=== PATIENT | male | born 1935 | race Caucasian/White ===

== ENCOUNTER 2018-01-22 11:56 | Inpatient (IN) ==
--- NOTE | 2018-01-22 12:10 | Emergency Department Note ---
Disposition Clinical Impression: Acute hyperglycemia, EDUARDO (acute kidney injury), Acute delirium Right upper lobe pneumonia Qualifiers: Pneumonia type: due to unspecified organism Qualified Code(s): J18.1 - Lobar pneumonia, unspecified organism UTI (urinary tract infection) Qualifiers: Urinary tract infection type: acute pyelonephritis Qualified Code(s): N10 - Acute pyelonephritis Disposition: Admitted As Inpatient Condition: Fair Referrals: Guillermo Carey MD [Primary Care Provider] - Forms: ED Satisfaction Letter Time of Disposition: 16:03 Altered Mental Status HPI - General Chief Complaint: ED Altered Mental Status Stated Complaint: ams Time Seen by Provider: 01/22/18 11:58 Nursing Notes Reviewed: Yes Vital Signs Reviewed: Yes - History of Present Illness HPI Narrative: 82-year-old male brought in by EMS for complaint of altered mental status by patient's family. Patient is brought in from home. Patient denies any current complaints at this time concerning pain, shortness breath fevers, chills headaches or weakness. Family is not at bedside currently. EMS states that the patient is combative and not acting at his baseline. He has a history of Alzheimer's dementia but is usually friendly. They noticed the patient's blood sugars were high at home and patient has had problems with urinary tract infection in the past. EMS states that patient had a bowel movement on himself en-route. - Related Data Home Medications Medication Instructions Recorded Confirmed Insulin. 09/26/17 Lipitor 09/26/17 Previous Rx's Medication Instructions Recorded Sulfamethoxazole/Trimeth DS 1 each PO BID #14 tablet 09/26/17 [Bactrim DS] cephALEXin [Keflex] 500 mg PO TID #30 capsule 10/17/17 Allergies Allergy/AdvReac Type Severity Reaction Status Date / Time No Known Allergies Allergy Verified 09/26/17 16:53 All systems ED: reviewed and negative except as stated. Review of Systems: As Per HPI Limitations: ROS unobtainable due to patients medical condition Past Medical History - Past Medical History Attestation: Yes The following information was validated with the patient. Source: unable to obtain Medical history: Reports: diabetes, other Psychiatric history: Reports: no psych history - Social History Smoking Status: Current every day smoker Smokeless Tobacco Status: No Alcohol use: Reports: none Drug use: Reports: none Physical Exam Vital Signs Temperature 97.7 F 01/22/18 12:17 Pulse Rate 90 01/22/18 12:17 Respiratory Rate 20 01/22/18 12:17 Blood Pressure 121/89 01/22/18 12:17 O2 Sat by Pulse Oximetry 97 01/22/18 12:17 Temperature 97.7 F 01/22/18 12:17 Pulse Rate 90 01/22/18 12:17 Respiratory Rate 20 01/22/18 12:17 Blood Pressure 121/89 01/22/18 12:17 O2 Sat by Pulse Oximetry 97 01/22/18 12:17 Oxygen Delivery Oxygen Delivery Room Air CONSTITUTIONAL: Well-appearing; well-nourished; A&O X 1 to himself, in no apparent distress. Vital signs heart rate of 90 bpm. Normotensive at 121/89. HEAD: Normocephalic; atraumatic EYES: PERRL, no scleral icterus NOSE: The nose is normal in appearance without rhinorrhea NECK: No JVD or distended neck veins RESP: Normal chest excursion with respiration; breath sounds clear and equal bilaterally; no wheezes, rhonchi, or rales CARD: Regular rhythm, without murmurs, rub or gallop ABD: Non-distended; non-tender, soft, without rigidity, rebound or guarding,no pulsatile mass CHEST: No pain with palpation SKIN: Normal for age and race; warm and dry without diaphoresis ; no apparent lesions EXTREMITIES: Pulses are 2 plus and equal times 4 extremities, 2 plus peripheral pitting edema. No calf muscle pain NEUROLOGICAL: Patient is alert and oriented times three. Cranial nerves III- XII are intact. Sensory and motor functions are intact. Strength is 5/5 for flexion and extension in all 4 extremities. Course - Reevaluation(s) Reevaluation #1: Reevaluated. Daughter is at bedside. She states the patient is always pleasantly confused. She reports he has a history of urinary tract infections resistant to most antibiotics. Patient does have a right-sided upper lobe pneumonia. Initially we are going to place him on Levaquin however his recent UTI was resistant to this. We will place him on vancomycin Zosyn at this time. Anticipation of admission. Time: 13:21 Reevaluation #2: Patient's blood glucose greater than 500, beta hydroxybutyric acid elevated at 2.0 Time: 14:04 Reevaluation #3: Pt's daughter understands and agrees for admission Time: 14:27 Additional Reevaluation(s): 1504: Patient disconnected his IV, urine condom catheter, and his limb leads 1523 hrs: Labs states they cannot find the patient's VBG which is ordered an hour ago. They state to come and redraw. Ordered ABG. Vital Signs Temperature 97.7 F 01/22/18 12:17 Pulse Rate 90 01/22/18 12:17 Respiratory Rate 20 01/22/18 12:17 Blood Pressure 121/89 01/22/18 12:17 O2 Sat by Pulse Oximetry 97 01/22/18 12:17 Temperature 97.7 F 01/22/18 12:17 Pulse Rate 93 01/22/18 15:48 Respiratory Rate 18 01/22/18 15:48 Blood Pressure 133/80 01/22/18 15:48 O2 Sat by Pulse Oximetry 97 01/22/18 15:48 Oxygen Delivery Oxygen Delivery Room Air Altered Mental Status - MDM Narrative Medical decision making narrative: Patient's alteration of mental status appears to be attributed to pneumonia found on chest x-ray and a right upper lobe. Patient's urine also appears to be infected with a large a lot of blood, nitrites and leukocyte esterase as well as bacteria. Patient started on vancomycin and Zosyn due to prior resistance to levofloxacin from prior culture sensitivity. Patient's lab abnormalities include an elevation of creatinine, elevated glucose above 500, elevated beta hydroxybutyric acid, and mild elevation of WBC. Osmolality is high blood patient's has a anion gap calculated at 14. Patient's pH 7.35. Patient currently not in DKA but still has very high glucose and started on IV rehydration and insulin drip. Glucose on reevaluation were just above 300. Current plan is for admission for treatment of pneumonia right upper lobe from chest x-ray results showing consolidation and right upper lobe and a UTI. Dr. Saavedra the hospitalist as accepted patient for admission. Patient is currently in stable condition. Patient is heavily concentrating on his rag. Since doing so, patient has been very calm and has stopped removing his IVs and limb leads. - Lab Data Lab results reviewed: Yes I reviewed the patient's lab results. Lab results narrative: Short CBC 01/22/18 Range/Units 13:22 WBC 13.9 H (4.3-11.1) K/mcL Hgb 13.6 (12.9-16.9) g/dL Hct 40.4 (37.5-50.1) % Plt Count 452 H (140-400) K/mcL Neutrophils # 12.6 H (1.6-8.9) K/mcL BMP 01/22/18 Range/Units 13:22 Sodium 144 (136-145) mEq/L Potassium 4.5 (3.5-5.1) mEq/L Chloride 107 (98-107) mEq/L Carbon Dioxide 23 (23-29) mEq/L BUN 30 H (8-23) mg/dL Creatinine 1.74 H (0.70-1.30) mg/dL Glucose 555 H* (70-105) mg/dL Calcium 10.1 (8.6-10.3) mg/dL Cardiac Enzymes 01/22/18 Range/Units 13:22 Troponin I < 0.03 (< 0.04) ng/mL Liver Function 01/22/18 Range/Units 13:22 Total Bilirubin 0.5 (0.3-1.0) mg/dL AST 44 H (13-39) Units/L ALT 30 (7-52) Units/L Alkaline Phosphatase 73 (34-104) Units/L Albumin 4.1 (3.5-5.7) g/dL Urine 01/22/18 Range/Units 14:36 Urine Color Yellow (Yellow) Urine Clarity Cloudy A (Clear) Urine pH 6.0 (5.0-8.0) pH Units Ur Specific Broxton 1.030 H (1.010-1.025) Urine Protein 30 H (Neg-Trace) mg/dL Urine Glucose (UA) >=1000 H (Normal) mg/dL Result diagrams: 01/22/18 13:22 01/22/18 13:22 Lab Results 01/22/18 01/22/18 01/22/18 Range/Units 12:05 12:06 13:22 WBC 13.9 H (4.3-11.1) K/mcL RBC 4.48 (4.19-5.50) M/mcL Hgb 13.6 (12.9-16.9) g/dL Hct 40.4 (37.5-50.1) % MCV 90.2 (83.0-100.0) fL MCH 30.4 (28.0-33.3) pg MCHC 33.7 (31.6-35.5) g/dL RDW 13.4 (11.5-14.5) % Plt Count 452 H (140-400) K/mcL MPV 11.0 (9.4-12.4) fL Immature Gran % 0.3 (0-4) % Seg Neutrophils % 90.8 % Lymphocytes % 3.8 % Monocytes % 4.9 % Eosinophils % 0.0 % Basophils % 0.2 % Neutrophils # 12.6 H (1.6-8.9) K/mcL Lymphocytes # 0.5 L (0.6-4.6) K/mcL Monocytes # 0.7 (0.0-1.3) K/mcL Eosinophils # 0.0 (0.0-0.6) K/mcL Basophils # 0.0 (0.0-0.2) K/mcL VBG pH (7.32-7.42) pH Units VBG pCO2 (41-51) mmHg VBG pO2 (25-50) mmHg VBG HCO3 (21-27) mEq/L Sodium (136-145) mEq/L Potassium (3.5-5.1) mEq/L Chloride (98-107) mEq/L Carbon Dioxide (23-29) mEq/L BUN (8-23) mg/dL Creatinine (0.70-1.30) mg/dL Est GFR ( Amer) (> 60) Est GFR (Non-Af Amer) (> 60) BUN/Creatinine Ratio (6-26) Glucose (70-105) mg/dL POC Glucose 526 H* 536 H* (70-99) mg/dL Calculated Osmolality (280-300) Lactic Acid (0.5-2.2) mmol/L Calcium (8.6-10.3) mg/dL Phosphorus (2.7-4.5) mg/dL Magnesium (1.6-2.6) mg/dL Total Bilirubin (0.3-1.0) mg/dL AST (13-39) Units/L ALT (7-52) Units/L Alkaline Phosphatase (34-104) Units/L Troponin I (< 0.04) ng/mL Serum Total Protein (6.4-8.9) g/dL Albumin (3.5-5.7) g/dL Globulin (2.4-3.5) g/dL Albumin/Globulin Ratio (1.1-2.2) Beta-Hydroxybutyric Acd (0.02-0.27) mmol/L Urine Color (Yellow) Urine Clarity (Clear) Urine pH (5.0-8.0) pH Units Ur Specific Broxton (1.010-1.025) Urine Protein (Neg-Trace) mg/dL Urine Glucose (UA) (Normal) mg/dL Urine Ketones (Negative) mg/dL Urine Blood (Negative) Urine Nitrite (Negative) Urine Bilirubin (Negative) Urine Urobilinogen (Normal) mg/dL Ur Leukocyte Esterase (Negative) Urine Microscopic RBC (0-3) per hpf Urine Microscopic WBC (0-3) per hpf Urine Bacteria (None-Few) per hpf 01/22/18 01/22/18 01/22/18 Range/Units 13:22 13:22 13:22 WBC (4.3-11.1) K/mcL RBC (4.19-5.50) M/mcL Hgb (12.9-16.9) g/dL Hct (37.5-50.1) % MCV (83.0-100.0) fL MCH (28.0-33.3) pg MCHC (31.6-35.5) g/dL RDW (11.5-14.5) % Plt Count (140-400) K/mcL MPV (9.4-12.4) fL Immature Gran % (0-4) % Seg Neutrophils % % Lymphocytes % % Monocytes % % Eosinophils % % Basophils % % Neutrophils # (1.6-8.9) K/mcL Lymphocytes # (0.6-4.6) K/mcL Monocytes # (0.0-1.3) K/mcL Eosinophils # (0.0-0.6) K/mcL Basophils # (0.0-0.2) K/mcL VBG pH (7.32-7.42) pH Units VBG pCO2 (41-51) mmHg VBG pO2 (25-50) mmHg VBG HCO3 (21-27) mEq/L Sodium 144 (136-145) mEq/L Potassium 4.5 (3.5-5.1) mEq/L Chloride 107 (98-107) mEq/L Carbon Dioxide 23 (23-29) mEq/L BUN 30 H (8-23) mg/dL Creatinine 1.74 H (0.70-1.30) mg/dL Est GFR ( Amer) 46 L (> 60) Est GFR (Non-Af Amer) 38 L (> 60) BUN/Creatinine Ratio 17 (6-26) Glucose 555 H* (70-105) mg/dL POC Glucose (70-99) mg/dL Calculated Osmolality 330 H (280-300) Lactic Acid 1.8 (0.5-2.2) mmol/L Calcium 10.1 (8.6-10.3) mg/dL Phosphorus 2.7 (2.7-4.5) mg/dL Magnesium 2.0 (1.6-2.6) mg/dL Total Bilirubin 0.5 (0.3-1.0) mg/dL AST 44 H (13-39) Units/L ALT 30 (7-52) Units/L Alkaline Phosphatase 73 (34-104) Units/L Troponin I < 0.03 (< 0.04) ng/mL Serum Total Protein 7.3 (6.4-8.9) g/dL Albumin 4.1 (3.5-5.7) g/dL Globulin 3.2 (2.4-3.5) g/dL Albumin/Globulin Ratio 1.3 (1.1-2.2) Beta-Hydroxybutyric Acd > 2.00 H (0.02-0.27) mmol/L Urine Color (Yellow) Urine Clarity (Clear) Urine pH (5.0-8.0) pH Units Ur Specific Broxton (1.010-1.025) Urine Protein (Neg-Trace) mg/dL Urine Glucose (UA) (Normal) mg/dL Urine Ketones (Negative) mg/dL Urine Blood (Negative) Urine Nitrite (Negative) Urine Bilirubin (Negative) Urine Urobilinogen (Normal) mg/dL Ur Leukocyte Esterase (Negative) Urine Microscopic RBC (0-3) per hpf Urine Microscopic WBC (0-3) per hpf Urine Bacteria (None-Few) per hpf 01/22/18 01/22/18 Range/Units 14:36 15:43 WBC (4.3-11.1) K/mcL RBC (4.19-5.50) M/mcL Hgb (12.9-16.9) g/dL Hct (37.5-50.1) % MCV (83.0-100.0) fL MCH (28.0-33.3) pg MCHC (31.6-35.5) g/dL RDW (11.5-14.5) % Plt Count (140-400) K/mcL MPV (9.4-12.4) fL Immature Gran % (0-4) % Seg Neutrophils % % Lymphocytes % % Monocytes % % Eosinophils % % Basophils % % Neutrophils # (1.6-8.9) K/mcL Lymphocytes # (0.6-4.6) K/mcL Monocytes # (0.0-1.3) K/mcL Eosinophils # (0.0-0.6) K/mcL Basophils # (0.0-0.2) K/mcL VBG pH 7.35 (7.32-7.42) pH Units VBG pCO2 44 (41-51) mmHg VBG pO2 84 H (25-50) mmHg VBG HCO3 24 (21-27) mEq/L Sodium (136-145) mEq/L Potassium (3.5-5.1) mEq/L Chloride (98-107) mEq/L Carbon Dioxide (23-29) mEq/L BUN (8-23) mg/dL Creatinine (0.70-1.30) mg/dL Est GFR ( Amer) (> 60) Est GFR (Non-Af Amer) (> 60) BUN/Creatinine Ratio (6-26) Glucose (70-105) mg/dL POC Glucose (70-99) mg/dL Calculated Osmolality (280-300) Lactic Acid (0.5-2.2) mmol/L Calcium (8.6-10.3) mg/dL Phosphorus (2.7-4.5) mg/dL Magnesium (1.6-2.6) mg/dL Total Bilirubin (0.3-1.0) mg/dL AST (13-39) Units/L ALT (7-52) Units/L Alkaline Phosphatase (34-104) Units/L Troponin I (< 0.04) ng/mL Serum Total Protein (6.4-8.9) g/dL Albumin (3.5-5.7) g/dL Globulin (2.4-3.5) g/dL Albumin/Globulin Ratio (1.1-2.2) Beta-Hydroxybutyric Acd (0.02-0.27) mmol/L Urine Color Yellow (Yellow) Urine Clarity Cloudy A (Clear) Urine pH 6.0 (5.0-8.0) pH Units Ur Specific Broxton 1.030 H (1.010-1.025) Urine Protein 30 H (Neg-Trace) mg/dL Urine Glucose (UA) >=1000 H (Normal) mg/dL Urine Ketones 15 H (Negative) mg/dL Urine Blood Large H (Negative) Urine Nitrite Positive A (Negative) Urine Bilirubin Negative (Negative) Urine Urobilinogen Normal (Normal) mg/dL Ur Leukocyte Esterase Moderate H (Negative) Urine Microscopic RBC 3-5 H (0-3) per hpf Urine Microscopic WBC 50-100 H (0-3) per hpf Urine Bacteria Many H (None-Few) per hpf - Radiology Data Radiology results reviewed: Yes I reviewed the patient's radiology results. Chest X-Ray 01/22/18 12:00 IMPRESSION: Mild increased opacity in the right upper lobe which may represent a developing infiltrate. Follow-up to resolution is recommended. D/ / Winnie Rodriguez MD / Winnie Rodriguez MD Interpreting Provider: Winnie Rodriguez MD - EKG Data EKG attestation: Yes I reviewed and interpreted this EKG. EKG results narrative: EKG taken 01/22/2018 at 1220 hrs. shows A. fib at a rate of 89 bpm. Right bundle branch block but no ST elevations or depressions any leads. This EKG shows no change in morphology from previous EKG taken 10/16/2017. TPA Checklist - LKW: 3-4.5 hrs Add. Warnings/Precautions Patient/family understanding: The patient/family members have been counseled and understood the risk, benefit , and alternatives of treatment.
[2018-01-22] MEDS ORDERED: 0.9 % Sodium Chloride 1,000 ML IVC ONE ×2 (12:49→14:03)
[2018-01-22] MEDS ORDERED: Levofloxacin 750 MG/150 ML 750 MG/150 ML BAG IVPB ONE (12:51)
[2018-01-22] MEDS ORDERED: Piperacillin/Tazobactam 3.375 GM in 0.9 % Sodium Chloride Mini Bag 100 ML IVPB ONE (13:21)
[2018-01-22 13:37] LABS: Basophils % 0.2 %; Hematocrit 40.4 % (37.5-50.1); Hemoglobin 13.6 g/dL (12.9-16.9); Immature Granulocytes % 0.3 % (0-4); Lymphocytes # 0.5 K/mcL (0.6-4.6); Lymphocytes % 3.8 %; Mean Corpuscular HGB Conc 33.7 g/dL (31.6-35.5); Mean Corpuscular Hemoglobin 30.4 pg (28.0-33.3); Mean Corpuscular Volume 90.2 fL (83.0-100.0); Monocytes # 0.7 K/mcL (0.0-1.3); Monocytes % 4.9 %; Neutrophils # 12.6 K/mcL (1.6-8.9); Platelet Count 452 K/mcL (140-400); Red Blood Count 4.48 M/mcL (4.19-5.50); Red Cell Distribution Width 13.4 % (11.5-14.5); Segmented Neutrophils % 90.8 %
[2018-01-22] MEDS ORDERED: Insulin Human Regular 100 UNIT in 0.9 % Sodium Chloride 100 ML IVC SCH (14:15)
[2018-01-22 14:22] LABS: Alanine Aminotransferase 30 Units/L (7-52); Albumin 4.1 g/dL (3.5-5.7); Albumin/Globulin Ratio 1.3 (1.1-2.2); Alkaline Phosphatase 73 Units/L (34-104); Aspartate Amino Transferase 44 Units/L (13-39); BUN/Creatinine Ratio 17 (6-26); Bilirubin,Total 0.5 mg/dL (0.3-1.0); Blood Urea Nitrogen 30 mg/dL (8-23); Calcium 10.1 mg/dL (8.6-10.3); Carbon Dioxide 23 mEq/L (23-29); Chloride 107 mEq/L (98-107); Globulin 3.2 g/dL (2.4-3.5); Glucose 555 mg/dL (70-105); Osmolality,Calculated 330 (280-300); Potassium 4.5 mEq/L (3.5-5.1); Sodium 144 mEq/L (136-145); Total Protein 7.3 g/dL (6.4-8.9); eGFR For African Americans 46 (> 60); eGFR For Non-African Americans 38 (> 60)
[2018-01-22 14:35] LABS: Phosphorous 2.7 mg/dL (2.7-4.5); Troponin I < 0.03 ng/mL (< 0.04)
[2018-01-22 15:04] LABS: Bilirubin,Urine Negative (Negative); Blood,Urine Large (Negative); Color,Urine Yellow (Yellow); Glucose,Urine (UA) >=1000 mg/dL (Normal); Ketones,Urine 15 mg/dL (Negative); Leukocyte Esterase,Urine Moderate (Negative); Nitrite,Urine Positive (Negative); Protein,Urine 30 mg/dL (Neg-Trace); Urobilinogen,Urine Normal (Normal)
[2018-01-22 15:06] LABS: Clarity,Urine Cloudy (Clear)
--- NOTE | 2018-01-22 15:11 | Emergency Department Note ---
START Narrative - START START: I examined this patient and my medical decision-making was reviewed with the Resident Physician. I agree with the documented findings, disposition and treatment plan as described except to the extent set forth below. 82-year-old male presented to the emergency room for altered mental status. Patient was found to have pneumonia. Patient has an underlying history of Alzheimer's disease. I feel this is exacerbated by his infectious process. Patient will be started on IV antibiotics and will be admitted to the hospital. Lives at home with his and daughter. Chest x-ray shows some haziness in the right upper region.
[2018-01-22 15:17] LABS: Bacteria,Urine Many per hpf (None-Few); WBC,Urine 50-100 per hpf (0-3)
[2018-01-22 15:46] LABS: VBG HCO3 24 mEq/L (21-27); VBG PCO2 44 mmHg (41-51); VBG PH 7.35 pH Units (7.32-7.42); VBG PO2 84 mmHg (25-50)
[2018-01-22 15:53] LABS: ABG Base Excess 0 mEq/L (-2 to 3); ABG HCO3 25 mEq/L (21-27); ABG Oxygen Saturation 36 % (95-98); ABG PCO2 40 mmHg (35-45); ABG PO2 22 mmHg (85-104); ABG TCO2 26 mEq/L (20-26)
[2018-01-22] MEDS ORDERED: Haloperidol Lactate 5 MG/ML VIAL IVP ONE ×2 (18:59→19:18)
[2018-01-22] MEDS ORDERED: Naloxone 0.4 MG/ML INJ IVP PRN (19:05)
[2018-01-22] MEDS ORDERED: *HR* Dextrose 50 % in Water (Syg) 50 ML SYRINGE IVP PRN (19:21)
[2018-01-22] MEDS ORDERED: D5% in Water 1,000 ML IVC PRN (19:21)
[2018-01-22] MEDS ORDERED: Dextrose Gel 15 GM/37.5 ML TUBE PO PRN ×2 (19:21)
--- NOTE | 2018-01-22 19:27 | Internal Med History&Physical ---
Date of Encounter: 01/22/18 Time of Encounter: 19:23 Internal Medicine - H&P: HPI Admitted From: Home Plans for Post Hospital Care: Home History of present illness: Mr. Alston is a 82 year old male with history of advanced dementia, resistant UTI has been under care of urologist and plan to get circumcision next week, diabetes mellitus, hypertension, hyperlipidemia brought in by EMS for complaint of altered mental status by patient's family. As a baseline patient is pleasantly confused but since yesterday he is acting differently with irritability and more confused with hallucinations. In ER his vitals were stable but abnormal lab with very high blood glucose level, abnormal urine analysis, leukocytosis, chest x-ray with right upper lobe infiltrate. Broader spectrum antibiotic IV Zosyn and vancomycin along with IV insulin drip was started. ER physician called on-call hospitalists for the admission with the diagnosis of EMS, UTI, pneumonia, EDUARDO, hyperglycemia. Family denies fever, vomiting, diarrhea, abdominal pain. Hard to get review of system information from patient because of his mental status. Past Med Surg Social Fam HX - Past Medical History Medical history: diabetes, other Psychiatric history: no psych history - Social History Smoking Status: Current every day smoker Smokeless Tobacco Status: No Alcohol use: none Drug use: none Internal Medicine - H&P: Meds Donepezil [Aricept] 10 mg PO HS 01/22/18 [History] Insulin Lispro Protamin/Lispro [Humalog Mix 75-25 Vial] 18 units IJ QPM [History] Insulin Lispro Protamin/Lispro [Humalog Mix 75-25 Vial] 28 unit IJ QAM 01/22/18 [History] Lisinopril/Hydrochlorothiazide [Zestoretic 10-12.5 mg Tablet] 1 tab PO DAILY [History] Pantoprazole Sodium 40 mg PO DAILY 01/22/18 [History] Pravastatin Sodium [Pravachol] 40 mg PO HS 01/22/18 [History] 3 Allergy/AdvReac Type Severity Reaction Status Date / Time No Known Allergies Allergy Verified 09/26/17 16:53 All Systems PM: A 10-system review of systems was performed and is negative for pertinent findings except as documented above in the HPI. - Constitutional Vitals: Temp Pulse Resp BP Pulse Ox 97.7 F 93 18 125/87 97 01/22/18 12:17 01/22/18 15:48 01/22/18 16:48 01/22/18 16:48 01/22/18 15:48 Exam: General appearance: The patient is irritable. Alert awake but not oriented. Family at bedside. Head exam: Atraumatic Eye exam: EOMI, PERRLA ENT exam: Moist oral mucosa. Edentulous Neck nontender, supple Respiratory exam: Small crepitus and right upper lung. Cardiovascular exam: Regular rate and rhythm Abdominal exam: Soft, nontender, nondistended, positive bowel sounds. Stable hernia palpable midline Extremities exam: No calf tenderness, no pedal edema Present, chronic venous stasis change in his skin Skin-no rash, warm, dry, intact Neurological exam: Normal all limbs without purposes. no focal deficits. No facial droop. Unable to assess gait Internal Med - H&P Results - Labs CBC & Chem 7: 01/22/18 13:22 01/22/18 13:22 - Assessment and plan (1) Altered mental state Current Visit: Yes Status: Acute Assessment and plan: Acute on chronic change in mental status. Patient already has advanced dementia. No focal neurological deficit. Will order CT brain without contrast. Most likely due to active infection pneumonia and UTI. Broader spectrum antibiotic is started by ER physician. Blood culture urine culture ordered. Oxygen supplementation, DuoNeb. Fall, aspiration precaution. Will keep patient nothing by mouth. Swallow study in the morning. Qualifiers: Altered mental status type: delirium Qualified Code(s): R41.0 - Disorientation, unspecified (2) EDUARDO (acute kidney injury) Current Visit: Yes Status: Acute Assessment and plan: Gentle hydration with a strict I&O's. BMP monitoring. Avoid nephrotoxic drug. (3) Acute hyperglycemia Current Visit: Yes Status: Acute Assessment and plan: Does not appear NDKA but more likely HHS. Insulin drip already started by ER physician. Will continue protocol for now. IV fluid 1 L was given in the ER. Will restart 100 mL per hour. Blood glucose level already started to improve last was in 200s. Sliding scale insulin will be started. Continue Accu-Chek and lab monitoring. (4) Right upper lobe pneumonia Current Visit: Yes Status: Acute Assessment and plan: Newly diagnosed. Broader spectrum antibiotic is started. Review of the chest x -ray. Continue oxygen supplementation. Will repeat chest x-ray if any concern. 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 Under care of urologist. Plan for a scheduled circumcision next week. Will contact his urologist tomorrow morning. Urine culture ordered. Qualifiers: Urinary tract infection type: site unspecified Hematuria presence: with hematuria Qualified Code(s): N39.0 - Urinary tract infection, site not specified; R31.9 - Hematuria, unspecified; R31.9 - Hematuria, unspecified (6) DVT prophylaxis Current Visit: Yes Status: Chronic Assessment and plan: SCDs - Time Spent With Patient Total time spent is greater than 50% in coordination of care (as documented) at patient's floor/unit and/or counseling patient: 25 - 35 minutes
[2018-01-22 20:07] LABS: Potassium 3.7 mEq/L (3.5-5.1)
[2018-01-22 20:15] LABS: Estimated Average Glucose 189 mg/dl; Hemoglobin A1C 8.2 %
[2018-01-22] MEDS ORDERED: Haloperidol Lactate 5 MG/ML VIAL IM ONE (20:51)
[2018-01-23] MEDS ORDERED: Haloperidol Lactate 5 MG/ML VIAL IVP ONE ×2 (00:09→02:42)
[2018-01-23] MEDS: 0.9 % Sodium Chloride 1,000 ML IVC SCH (00:15)
[2018-01-23] MEDS: Piperacillin/Tazobactam 3.375 GM in 0.9 % Sodium Chloride Mini Bag 100 ML IVPB SCH ×3 (00:40→17:25)
[2018-01-23] MEDS ORDERED: Haloperidol Lactate 5 MG/ML VIAL ONE (02:44)
[2018-01-23 05:17] LABS: Basophils % 0.2 %; Eosinophils % 0.1 %; Hemoglobin 12.3 g/dL (12.9-16.9); Immature Granulocytes % 0.6 % (0-4); Lymphocytes # 1.2 K/mcL (0.6-4.6); Lymphocytes % 7.6 %; Mean Corpuscular HGB Conc 33.2 g/dL (31.6-35.5); Mean Corpuscular Hemoglobin 30.2 pg (28.0-33.3); Mean Corpuscular Volume 90.9 fL (83.0-100.0); Mean Platelet Volume 11.6 fL (9.4-12.4); Monocytes # 1.3 K/mcL (0.0-1.3); Monocytes % 7.9 %; Neutrophils # 13.5 K/mcL (1.6-8.9); Platelet Count 363 K/mcL (140-400); Red Blood Count 4.07 M/mcL (4.19-5.50); Red Cell Distribution Width 13.7 % (11.5-14.5); Segmented Neutrophils % 83.6 %
[2018-01-23 05:31] LABS: Calcium 9.4 mg/dL (8.6-10.3); Potassium 3.2 mEq/L (3.5-5.1)
[2018-01-23] MEDS ORDERED: Potassium Chloride 20 MEQ, Lidocaine 1% 2 ML in D5% in Water 250 ML IVPB ONE (08:59)
[2018-01-23] MEDS ORDERED: Pantoprazole 40 MG VIAL IVP SCH (09:00)
[2018-01-23] MEDS ORDERED: *HR* Dextrose 50 % in Water (Syg) 50 ML SYRINGE IVP PRN (09:04)
[2018-01-23] MEDS ORDERED: Dextrose Gel 15 GM/37.5 ML TUBE PO PRN ×2 (09:04)
[2018-01-23] MEDS ORDERED: D5% in Water 1,000 ML IVC PRN (09:04)
[2018-01-23] MEDS ORDERED: NON-FORMULARY MEDICATION 1 EACH EACH (Pantoprazole Sodium [Pantoprazole Sodium] 40 MG) PO SCH (09:15)
--- NOTE | 2018-01-23 10:22 | Internal Med Progress Note ---
Date of Encounter: 01/23/18 Time of Encounter: 09:27 - Assessment and plan (1) Right upper lobe pneumonia Current Visit: Yes Status: Acute Assessment and plan: Continue IV vancomycin and IV zosyn. Continue oxygen supplementation PRN; wean as tolerated. Recheck CBC in AM. Qualifiers: Pneumonia type: due to unspecified organism Qualified Code(s): J18.1 - Lobar pneumonia, unspecified organism (2) Acute hyperglycemia Current Visit: Yes Status: Acute Assessment and plan: Improved. Blood glucose = 75 this AM. Insulin drip discontinued. Switched IV fluids to 1/2 NS given hyponatremia. Start diabetic diet. Start accuchecks and SSI QID AC/HS. Recheck BMP in AM. (3) EDUARDO (acute kidney injury) Current Visit: Yes Status: Acute Assessment and plan: Improved. Gentle hydration with now 1/2 NS due to hyponatremia. Avoid nephrotoxic drugs. Repeat BMP in AM. (4) UTI (urinary tract infection) Current Visit: Yes Status: Acute Assessment and plan: Acute on chronic. Multi-drug resistant UTI. Under care of urologist. Plan for a scheduled circumcision next week. Continue IV vancomycin and IV zosyn. Qualifiers: Urinary tract infection type: site unspecified Hematuria presence: with hematuria Qualified Code(s): N39.0 - Urinary tract infection, site not specified; R31.9 - Hematuria, unspecified; R31.9 - Hematuria, unspecified (5) Altered mental state Current Visit: Yes Status: Acute Assessment and plan: Acute on chronic change in mental status. Patient already has advanced dementia. No focal neurological deficit. Had issues with violence and agitation throughout night. Required physical restraints this AM. Will now discontinue these after speaking with patient and seeing that he is more calm. CT brain without contrast pending. This is most likely due to active infection pneumonia and UTI. Treat pneumonia and UTI as per above. Fall precaution. Will order zyprexa 5 mg IM BID PRN agitation; advised nursing staff to only use if patient is a danger to himself and/or staff. Qualifiers: Altered mental status type: delirium Qualified Code(s): R41.0 - Disorientation, unspecified (6) DVT prophylaxis Current Visit: Yes Status: Chronic Assessment and plan: Continue SCDs. Start lovenox 30 mg SQ QD. - Time Spent With Patient Total time spent is greater than 50% in coordination of care (as documented) at patient's floor/unit and/or counseling patient: less than 15 minutes - Subjective Interval history: Patient had some agitation last night. Was verbally and physically abusive to nursing staff. Received haldol and restriants. He was without restraints this AM, but nursing staff requested restraints and I evaluated patient. He was being verbally and physically abusive again. When I saw him again later this morning, he was much more relaxed. He has a sitter who confirmed that he has been OK without restraints. We will again do a trial of no restraints. He states that he will not be aggressive. He states that his breathing is "good." He denies chest pain, fever, chills, nausea, vomiting, or abdominal pain. He has no other complaints. He is alert but not oriented to anything. - Constitutional Vitals: Temp Pulse Resp BP Pulse Ox 97.6 F 69 18 146/52 94 01/23/18 04:41 01/23/18 04:41 01/23/18 04:41 01/23/18 04:41 01/23/18 04:41 General appearance: Present: A&O X 0, cooperative, disheveled, no acute distress , answers questions appropriately - Respiratory Respiratory exam: Present: CTAB. Absent: accessory muscle use, rales, rhonchi, wheezes Additional comments: Normal WOB - Cardiovascular Cardiovascular exam: Present: RRR, +S1, +S2. Absent: diastolic murmur, gallop, rubs, systolic murmur Additional comments: No BLE edema - GI/Abdominal GI/Abdominal exam: Present: normal bowel sounds, soft. Absent: distended, hepatomegaly, mass, splenomegaly, tenderness - Psychiatric Psychiatric exam: Present: normal affect, normal mood. Absent: agitated, anxious, depressed - Skin Skin exam: Present: dry, intact, warm. Absent: cyanosis, rash Internal Medicine: Result - Labs CBC & Chem 7: 01/23/18 03:59 01/23/18 03:59 Labs: Short CBC 01/23/18 Range/Units 03:59 WBC 16.2 H (4.3-11.1) K/mcL Hgb 12.3 L (12.9-16.9) g/dL Hct 37.0 L (37.5-50.1) % Plt Count 363 (140-400) K/mcL Neutrophils # 13.5 H (1.6-8.9) K/mcL BMP 01/22/18 01/23/18 19:36 03:59 Sodium 151 H 152 H Potassium 3.7 3.2 L Chloride 114 H 116 H Carbon Dioxide 27 25 BUN 28 H 27 H Creatinine 1.53 H 1.45 H Glucose 177 H 75 Calcium 10.0 9.4 - ABG Interpretation ABG results: ABG ABG pH 7.40 pH Units (7.32-7.45) 01/22/18 15:48 ABG pCO2 40 mmHg (35-45) 01/22/18 15:48 ABG pO2 22 mmHg (85-104) L* 01/22/18 15:48 ABG O2 Saturation 36 % (95-98) L 01/22/18 15:48 - Impressions Impressions Head CT 01/23/18 09:06 IMPRESSION: No acute intracranial abnormality. D/ / Chalo Pritchett MD / Chalo Pritchett MD Interpreting Provider: Chalo Pritchett MD Consult Discharge Plan - Plan Referrals: Guillermo Carey MD [Primary Care Provider] -
[2018-01-23] MEDS ORDERED: OLANZapine 10 MG VIAL IM PRN (10:31)
[2018-01-23] MEDS ORDERED: Insulin LISPRO 300 UNITS/3 ML VIAL SQ SCH ×5 (11:30→21:00)
[2018-01-23] MEDS: *HR* Enoxaparin 30 MG/0.3 ML SYRINGE SQ SCH (12:05)
[2018-01-23] MEDS: Insulin LISPRO 300 UNITS/3 ML VIAL SQ SCH ×2 (17:25→20:17)
[2018-01-23] MEDS: Insulin NPH/REG 70/30 100 UNIT/ML (x5UNIT) SQ SCH (18:14)
[2018-01-24] MEDS: Piperacillin/Tazobactam 3.375 GM in 0.9 % Sodium Chloride Mini Bag 100 ML IVPB SCH ×4 (00:01→23:53)
[2018-01-24] MEDS ORDERED: OLANZapine 10 MG VIAL IM PRN (01:00)
[2018-01-24] MEDS ORDERED: Haloperidol Lactate 5 MG/ML VIAL IVP ONE (01:11)
[2018-01-24 03:52] LABS: Basophils # 0.1 K/mcL (0.0-0.2); Basophils % 0.4 %; Eosinophils # 0.1 K/mcL (0.0-0.6); Eosinophils % 0.6 %; Hematocrit 34.2 % (37.5-50.1); Hemoglobin 11.4 g/dL (12.9-16.9); Immature Granulocytes % 0.7 % (0-4); Lymphocytes # 1.5 K/mcL (0.6-4.6); Lymphocytes % 9.1 %; Mean Corpuscular HGB Conc 33.3 g/dL (31.6-35.5); Mean Corpuscular Hemoglobin 30.2 pg (28.0-33.3); Mean Corpuscular Volume 90.7 fL (83.0-100.0); Mean Platelet Volume 10.7 fL (9.4-12.4); Monocytes # 1.1 K/mcL (0.0-1.3); Neutrophils # 13.5 K/mcL (1.6-8.9); Platelet Count 367 K/mcL (140-400); Red Blood Count 3.77 M/mcL (4.19-5.50); Red Cell Distribution Width 13.7 % (11.5-14.5); Segmented Neutrophils % 82.2 %
[2018-01-24 04:10] LABS: BUN/Creatinine Ratio 19 (6-26); Blood Urea Nitrogen 24 mg/dL (8-23); Calcium 8.7 mg/dL (8.6-10.3); Carbon Dioxide 25 mEq/L (23-29); Chloride 110 mEq/L (98-107); Glucose 71 mg/dL (70-105); Osmolality,Calculated 297 (280-300); Potassium 3.8 mEq/L (3.5-5.1); Sodium 142 mEq/L (136-145); eGFR For African Americans > 60 (> 60); eGFR For Non-African Americans 53 (> 60)
[2018-01-24] MEDS: *HR* Enoxaparin 30 MG/0.3 ML SYRINGE SQ SCH (06:17)
[2018-01-24] MEDS: Insulin NPH/REG 70/30 100 UNIT/ML (x5UNIT) SQ SCH ×3 (06:45→17:28)
[2018-01-24] MEDS ORDERED: Insulin LISPRO 300 UNITS/3 ML VIAL SQ SCH ×2 (08:00)
[2018-01-24] MEDS: Insulin LISPRO 300 UNITS/3 ML VIAL SQ SCH ×4 (08:07→19:53)
[2018-01-24] MEDS: OLANZapine 10 MG VIAL IM PRN (09:31)
--- NOTE | 2018-01-24 11:36 | Internal Med Progress Note ---
Date of Encounter: 01/24/18 Time of Encounter: 09:07 - Assessment and plan (1) Right upper lobe pneumonia Current Visit: Yes Status: Acute Assessment and plan: Improved. Continue IV vancomycin and IV zosyn. Continue oxygen supplementation PRN; wean as tolerated. Recheck CBC in AM. Qualifiers: Pneumonia type: due to unspecified organism Qualified Code(s): J18.1 - Lobar pneumonia, unspecified organism (2) Acute hyperglycemia Current Visit: Yes Status: Acute Assessment and plan: Improved. Discontinue IVF. Continue diabetic diet. Continue accuchecks and SSI QID AC/HS. Recheck BMP in AM. (3) EDUARDO (acute kidney injury) Current Visit: Yes Status: Resolved Assessment and plan: Resolved. Discontinue IVF. Avoid nephrotoxic drugs. Repeat BMP in AM. (4) UTI (urinary tract infection) Current Visit: Yes Status: Acute Assessment and plan: Acute on chronic. Multi-drug resistant UTI. Under care of urologist. Plan for a scheduled circumcision next week. Continue IV vancomycin and IV zosyn. Qualifiers: Urinary tract infection type: site unspecified Hematuria presence: with hematuria Qualified Code(s): N39.0 - Urinary tract infection, site not specified; R31.9 - Hematuria, unspecified; R31.9 - Hematuria, unspecified (5) Altered mental state Current Visit: Yes Status: Acute Assessment and plan: Acute on chronic change in mental status. Patient already has advanced dementia. No focal neurological deficit. Had issues with violence and agitation throughout night and again today AM. Required physical restraints this AM. CT brain without contrast showed no acute intracranial abnormalities. This acute worsening is most likely due to active infection of pneumonia and UTI, but may represent a worsening of chronic dementia. Treat pneumonia and UTI as per above. Fall precaution. Continue zyprexa 5 mg IM BID PRN agitation ; advised nursing staff to only use if patient is a danger to himself and/or staff. Qualifiers: Altered mental status type: delirium Qualified Code(s): R41.0 - Disorientation, unspecified (6) DVT prophylaxis Current Visit: Yes Status: Chronic Assessment and plan: Continue lovenox 30 mg SQ QD. - Time Spent With Patient Total time spent is greater than 50% in coordination of care (as documented) at patient's floor/unit and/or counseling patient: 25 - 35 minutes - Subjective Interval history: Patient had some agitation last night. He is verbally and physically abusive to nursing staff this AM. Restriants were required and zyprexa given. He calmed down with medication, and trial of removal of restraints was initiated. He is better with family in room. He wants to talk to his "mother." He states that his breathing is "good." He denies chest pain, fever, chills, nausea, vomiting, or abdominal pain. He has no other complaints. He is alert but not oriented to anything. - Constitutional Vitals: Temp Pulse Resp BP Pulse Ox 98.5 F 56 18 168/53 95 01/24/18 07:41 01/24/18 07:41 01/24/18 07:41 01/24/18 07:41 01/24/18 07:41 General appearance: Present: A&O X 0, disheveled, mild distress. Absent: cooperative - Respiratory Respiratory exam: Present: CTAB. Absent: accessory muscle use, rales, rhonchi, wheezes Additional comments: Normal WOB - Cardiovascular Cardiovascular exam: Present: RRR, +S1, +S2. Absent: diastolic murmur, gallop, rubs, systolic murmur Additional comments: No BLE edema - GI/Abdominal GI/Abdominal exam: Present: normal bowel sounds, soft. Absent: distended, hepatomegaly, mass, splenomegaly, tenderness - Psychiatric Psychiatric exam: Present: agitated, normal affect, normal mood. Absent: anxious, depressed - Skin Skin exam: Present: dry, intact, warm. Absent: cyanosis, rash Internal Medicine: Result - Labs CBC & Chem 7: 01/24/18 03:40 01/24/18 03:40 Labs: Short CBC 01/24/18 Range/Units 03:40 WBC 16.4 H (4.3-11.1) K/mcL Hgb 11.4 L (12.9-16.9) g/dL Hct 34.2 L (37.5-50.1) % Plt Count 367 (140-400) K/mcL Neutrophils # 13.5 H (1.6-8.9) K/mcL BMP 01/24/18 03:40 Sodium 142 D Potassium 3.8 Chloride 110 H Carbon Dioxide 25 BUN 24 H Creatinine 1.29 Glucose 71 Calcium 8.7 - ABG Interpretation ABG results: ABG ABG pH 7.40 pH Units (7.32-7.45) 01/22/18 15:48 ABG pCO2 40 mmHg (35-45) 01/22/18 15:48 ABG pO2 22 mmHg (85-104) L* 01/22/18 15:48 ABG O2 Saturation 36 % (95-98) L 01/22/18 15:48 Consult Discharge Plan - Plan Referrals: Guillermo Carey MD [Primary Care Provider] -
[2018-01-24] MEDS ORDERED: OLANZapine 10 MG VIAL IM STA (14:04)
--- NOTE | 2018-01-24 15:43 | Electrocardiograph Report ---
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 [employer]: Am : 1935 Requested By: Ernst Kruse Order Number: [id number] Reading MD: Pamela العلي Measurements Intervals [place] Rate: 89 P: [place]: 0 QRS: -60 QRSD: 131 T: 15 QT: 409 QTc: 456 Interpretive Statements ATRIAL FIBRILLATION RIGHT BUNDLE BRANCH BLOCK [120+ ms QRS DURATION, UPRIGHT V1, 40+ ms S IN I/aVL/V4/V5/V6] LEFT ANTERIOR FASCICULAR BLOCK [QRS AXIS <= -45, QR IN I, RS IN II] MODERATE VOLTAGE CRITERIA FOR LVH, CONSIDER NORMAL VARIANT [MEETS CRITERIA IN ONE OF: R(aVL), S(V1), R(V5), R(V5/V6)+S(V1)] POSSIBLE ANTERIOR MYOCARDIAL INFARCTION [30 ms Q WAVE IN V3/V4, OR R < 0.2 mV IN V4], OF INDETERMINATE AGE Electronically Signed On 01-24-2018 15:42:18 EDT by Pamela العلي
[2018-01-24] MEDS: OLANZapine 10 MG VIAL IM ONE ×2 (22:35→23:52)
[2018-01-25] MEDS: *HR* Enoxaparin 30 MG/0.3 ML SYRINGE SQ SCH (05:15)
[2018-01-25 05:57] LABS: Basophils # 0.1 K/mcL (0.0-0.2); Basophils % 0.4 %; Eosinophils % 0.3 %; Hematocrit 42.1 % (37.5-50.1); Immature Granulocytes % 0.7 % (0-4); Lymphocytes # 0.8 K/mcL (0.6-4.6); Lymphocytes % 4.9 %; Mean Corpuscular HGB Conc 33.5 g/dL (31.6-35.5); Mean Corpuscular Hemoglobin 30.1 pg (28.0-33.3); Mean Corpuscular Volume 89.8 fL (83.0-100.0); Mean Platelet Volume 11.5 fL (9.4-12.4); Monocytes # 1.2 K/mcL (0.0-1.3); Monocytes % 7.5 %; Neutrophils # 13.5 K/mcL (1.6-8.9); Nucleated Red Blood Cells 0.1 /100 WBC (0); Platelet Count 309 K/mcL (140-400); Red Blood Count 4.69 M/mcL (4.19-5.50); Red Cell Distribution Width 13.5 % (11.5-14.5); Segmented Neutrophils % 86.2 %
[2018-01-25 05:59] LABS: Hemoglobin 14.1 g/dL (12.9-16.9)
[2018-01-25 06:16] LABS: BUN/Creatinine Ratio 14 (6-26); Blood Urea Nitrogen 17 mg/dL (8-23); Calcium 8.9 mg/dL (8.6-10.3); Carbon Dioxide 24 mEq/L (23-29); Chloride 105 mEq/L (98-107); Glucose 223 mg/dL (70-105); Osmolality,Calculated 306 (280-300); Potassium 3.9 mEq/L (3.5-5.1); Sodium 144 mEq/L (136-145); eGFR For African Americans > 60 (> 60); eGFR For Non-African Americans 57 (> 60)
--- NOTE | 2018-01-25 07:58 | Internal Med Progress Note ---
Date of Encounter: 01/25/18 Time of Encounter: 07:55 - Assessment and plan (1) Right upper lobe pneumonia Current Visit: Yes Status: Acute Assessment and plan: Improving. Continue IV vancomycin and IV zosyn. Now off of supplemental oxygen for more than 48 hours. Continue oxygen supplementation PRN. Recheck CBC in AM. Qualifiers: Pneumonia type: due to unspecified organism Qualified Code(s): J18.1 - Lobar pneumonia, unspecified organism (2) UTI (urinary tract infection) Current Visit: Yes Status: Acute Assessment and plan: Acute on chronic. Multi-drug resistant UTI. Under care of urologist. Plan for a scheduled circumcision next week. Urine culture grew out MRSA susceptible to vancomycin. Continue IV vancomycin and IV zosyn. Recheck CBC in AM. Qualifiers: Urinary tract infection type: site unspecified Hematuria presence: with hematuria Qualified Code(s): N39.0 - Urinary tract infection, site not specified; R31.9 - Hematuria, unspecified; R31.9 - Hematuria, unspecified (3) Altered mental state Current Visit: Yes Status: Acute Assessment and plan: Acute on chronic change in mental status. Patient already has advanced dementia. No focal neurological deficit. CT brain without contrast showed no acute intracranial abnormalities. He had issues with violence and agitation throughout night again, and required zyprexa and physical restraints as he was a danger to himself and staff. More peaceful this AM, so will again do trial of no restraints. This acute worsening was initially suspected to be due to active infection of pneumonia and UTI. However, since infections have now been treated for 3+ days , he should be showing signs of improvement. Given that his behavior is not improving, I now think this may, in part, represent an interval worsening of chronic dementia. We will continue to treat pneumonia and UTI as per above and monitor closely. Continue fall precautions. Continue zyprexa 5 mg IM BID PRN agitation; advised nursing staff to only use if patient is a danger to himself and/or staff. I plan on having family meeting at 13:00 today. We will need to discuss plan of care and goals. If mental status does not start to improve, may need to consult psychiatry for progressive dementia. Qualifiers: Altered mental status type: delirium Qualified Code(s): R41.0 - Disorientation, unspecified (4) Acute hyperglycemia Current Visit: Yes Status: Acute Assessment and plan: Improved. Continue diabetic diet. Continue accuchecks and SSI QID AC/HS. Recheck BMP in AM. (5) EDUARDO (acute kidney injury) Current Visit: Yes Status: Resolved Assessment and plan: Resolved. Avoid nephrotoxic drugs. Repeat BMP in AM. (6) DVT prophylaxis Current Visit: Yes Status: Acute Assessment and plan: Continue lovenox 30 mg SQ QD. - Time Spent With Patient Total time spent is greater than 50% in coordination of care (as documented) at patient's floor/unit and/or counseling patient: less than 15 minutes - Subjective Interval history: Patient had some more agitation last night. He was verbally and physically abusive to nursing staff. He was given some zyprexa and temporarily put in restraints as he was a danger to both himself and staff. This morning, he is resting peacefully in bed. He states that he feels "ok." He is cooperative with examination. I spoke with nursing staff to do a trial of no restraints again. Nurse states that family was in yesterday evening and wants to meet with physician. We have planned for family meeting at 13:00 today. He denies chest pain, SOB, dysuria, fever, chills, nausea, vomiting, or abdominal pain. He has no other complaints. - Constitutional Vitals: Temp Pulse Resp BP Pulse Ox 98.3 F 74 17 144/62 96 01/25/18 04:38 01/25/18 04:38 01/25/18 04:38 01/25/18 04:38 01/25/18 04:38 General appearance: Present: A&O X 0, cooperative, disheveled, no acute distress - Respiratory Respiratory exam: Present: CTAB. Absent: accessory muscle use, rales, rhonchi, wheezes Additional comments: Normal WOB - Cardiovascular Cardiovascular exam: Present: RRR, +S1, +S2. Absent: diastolic murmur, gallop, rubs, systolic murmur Additional comments: No BLE edema - GI/Abdominal GI/Abdominal exam: Present: normal bowel sounds, soft. Absent: distended, hepatomegaly, mass, splenomegaly, tenderness - Psychiatric Psychiatric exam: Present: normal affect, normal mood. Absent: agitated, anxious, depressed - Skin Skin exam: Present: dry, intact, warm. Absent: cyanosis, rash Internal Medicine: Result - Labs CBC & Chem 7: 01/25/18 05:26 01/25/18 05:26 Labs: Short CBC 01/25/18 Range/Units 05:26 WBC 15.7 H (4.3-11.1) K/mcL Hgb 14.1 D (12.9-16.9) g/dL Hct 42.1 (37.5-50.1) % Plt Count 309 (140-400) K/mcL Neutrophils # 13.5 H (1.6-8.9) K/mcL BMP 01/25/18 05:26 Sodium 144 Potassium 3.9 Chloride 105 Carbon Dioxide 24 BUN 17 Creatinine 1.22 Glucose 223 H Calcium 8.9 - ABG Interpretation ABG results: ABG ABG pH 7.40 pH Units (7.32-7.45) 01/22/18 15:48 ABG pCO2 40 mmHg (35-45) 01/22/18 15:48 ABG pO2 22 mmHg (85-104) L* 01/22/18 15:48 ABG O2 Saturation 36 % (95-98) L 01/22/18 15:48 Consult Discharge Plan - Plan Referrals: Guillermo Carey MD [Primary Care Provider] -
[2018-01-25] MEDS: Insulin LISPRO 300 UNITS/3 ML VIAL SQ SCH ×4 (08:19→20:50)
[2018-01-25] MEDS: Piperacillin/Tazobactam 3.375 GM in 0.9 % Sodium Chloride Mini Bag 100 ML IVPB SCH ×3 (08:20→23:18)
[2018-01-25] MEDS: Insulin NPH/REG 70/30 100 UNIT/ML (x5UNIT) SQ SCH ×2 (08:21→17:11)
[2018-01-25] MEDS: OLANZapine 10 MG VIAL IM PRN (17:00)
[2018-01-26 03:10] LABS: Basophils % 0.2 %; Eosinophils % 0.1 %; Hematocrit 44.1 % (37.5-50.1); Hemoglobin 15.2 g/dL (12.9-16.9); Immature Granulocytes % 0.5 % (0-4); Lymphocytes # 0.8 K/mcL (0.6-4.6); Lymphocytes % 4.6 %; Mean Corpuscular HGB Conc 34.5 g/dL (31.6-35.5); Mean Corpuscular Hemoglobin 30.4 pg (28.0-33.3); Mean Corpuscular Volume 88.2 fL (83.0-100.0); Mean Platelet Volume 11.7 fL (9.4-12.4); Monocytes # 1.2 K/mcL (0.0-1.3); Neutrophils # 14.5 K/mcL (1.6-8.9); Platelet Count 290 K/mcL (140-400); Red Cell Distribution Width 13.3 % (11.5-14.5); Segmented Neutrophils % 87.6 %
[2018-01-26 03:31] LABS: BUN/Creatinine Ratio 14 (6-26); Blood Urea Nitrogen 17 mg/dL (8-23); Calcium 9.2 mg/dL (8.6-10.3); Carbon Dioxide 23 mEq/L (23-29); Chloride 106 mEq/L (98-107); Glucose 201 mg/dL (70-105); Osmolality,Calculated 303 (280-300); Potassium 3.2 mEq/L (3.5-5.1); Sodium 143 mEq/L (136-145); eGFR For African Americans > 60 (> 60); eGFR For Non-African Americans 58 (> 60)
[2018-01-26] MEDS: *HR* Enoxaparin 40 MG/0.4 ML SYRINGE SQ SCH (06:11)
[2018-01-26] MEDS: 0.9 % Sodium Chloride 1,000 ML IVC SCH (07:12)
[2018-01-26] MEDS: Insulin NPH/REG 70/30 100 UNIT/ML (x5UNIT) SQ SCH ×2 (09:30→17:17)
[2018-01-26] MEDS: Insulin LISPRO 300 UNITS/3 ML VIAL SQ SCH ×4 (09:33→20:39)
[2018-01-26] MEDS: Piperacillin/Tazobactam 3.375 GM in 0.9 % Sodium Chloride Mini Bag 100 ML IVPB SCH ×2 (09:35→15:48)
--- NOTE | 2018-01-26 16:17 | Internal Med Progress Note ---
Date of Encounter: 01/26/18 Time of Encounter: 11:57 - Assessment and plan (1) Right upper lobe pneumonia Current Visit: Yes Status: Acute Assessment and plan: Improving. Continue IV vancomycin and IV zosyn; consider transition to PO antibiotics tomorrow. Now off of supplemental oxygen for more than 72 hours. Continue oxygen supplementation PRN. Recheck CBC in AM. Qualifiers: Pneumonia type: due to unspecified organism Qualified Code(s): J18.1 - Lobar pneumonia, unspecified organism (2) UTI (urinary tract infection) Current Visit: Yes Status: Acute Assessment and plan: Acute on chronic. Multi-drug resistant UTI. Under care of urologist as outpatient. Plan for a scheduled circumcision next week. Urine culture grew out MRSA susceptible to vancomycin. Continue IV vancomycin and IV zosyn; consider transition to PO antibiotic tomorrow. Recheck CBC in AM. Qualifiers: Urinary tract infection type: site unspecified Hematuria presence: with hematuria Qualified Code(s): N39.0 - Urinary tract infection, site not specified; R31.9 - Hematuria, unspecified; R31.9 - Hematuria, unspecified (3) Altered mental state Current Visit: Yes Status: Acute Assessment and plan: Acute on chronic change in mental status. Patient already has advanced dementia. No focal neurological deficit. CT brain without contrast showed no acute intracranial abnormalities. Now improving. Discontinued restraints. Acute worsening due to infection vs progressive worsening of chronic dementia. We will continue to treat pneumonia and UTI as per above and monitor closely. Continue fall precautions. Continue zyprexa 5 mg IM BID PRN agitation; advised nursing staff to only use if patient is a danger to himself and/or staff. Plan for discharge to SNF. Qualifiers: Altered mental status type: delirium Qualified Code(s): R41.0 - Disorientation, unspecified (4) Acute hyperglycemia Current Visit: Yes Status: Acute Assessment and plan: Improved. Continue diabetic diet. Continue accuchecks and SSI QID AC/HS. Recheck BMP in AM. (5) EDUARDO (acute kidney injury) Current Visit: Yes Status: Resolved Assessment and plan: Resolved. Avoid nephrotoxic drugs. Repeat BMP in AM. (6) Hypokalemia Current Visit: Yes Status: Acute Assessment and plan: Replete potassium. Recheck BMP in AM. (7) DVT prophylaxis Current Visit: Yes Status: Acute Assessment and plan: Continue lovenox 30 mg SQ QD. - Time Spent With Patient Total time spent is greater than 50% in coordination of care (as documented) at patient's floor/unit and/or counseling patient: less than 15 minutes - Subjective Interval history: Patient had no acute events overnight. He was more peacefully last night, and he is resting and cooperative this AM. He communicates more appropriately this AM. He denies chest pain, SOB, dysuria, fever, chills, nausea, vomiting, or abdominal pain. He has no complaints today. - Constitutional Vitals: Temp Pulse Resp BP Pulse Ox 97.3 F L 78 18 157/75 96 01/26/18 15:07 01/26/18 15:07 01/26/18 15:07 01/26/18 15:07 01/26/18 15:07 General appearance: Present: A&O X 0, cooperative, pleasant, no acute distress, answers questions appropriately - Respiratory Respiratory exam: Present: CTAB. Absent: accessory muscle use, rales, rhonchi, wheezes Additional comments: Normal WOB - Cardiovascular Cardiovascular exam: Present: RRR, +S1, +S2. Absent: diastolic murmur, gallop, rubs, systolic murmur Additional comments: No BLE edema - GI/Abdominal GI/Abdominal exam: Present: normal bowel sounds, soft. Absent: distended, hepatomegaly, mass, splenomegaly, tenderness - Psychiatric Psychiatric exam: Present: normal affect, normal mood. Absent: agitated, anxious, depressed - Skin Skin exam: Present: dry, intact, warm. Absent: cyanosis, rash Internal Medicine: Result - Labs CBC & Chem 7: 01/26/18 02:37 01/26/18 02:37 Labs: Short CBC 01/26/18 Range/Units 02:37 WBC 16.6 H (4.3-11.1) K/mcL Hgb 15.2 (12.9-16.9) g/dL Hct 44.1 (37.5-50.1) % Plt Count 290 (140-400) K/mcL Neutrophils # 14.5 H (1.6-8.9) K/mcL BMP 01/26/18 02:37 Sodium 143 Potassium 3.2 L Chloride 106 Carbon Dioxide 23 BUN 17 Creatinine 1.19 Glucose 201 H Calcium 9.2 - ABG Interpretation ABG results: ABG ABG pH 7.40 pH Units (7.32-7.45) 01/22/18 15:48 ABG pCO2 40 mmHg (35-45) 01/22/18 15:48 ABG pO2 22 mmHg (85-104) L* 01/22/18 15:48 ABG O2 Saturation 36 % (95-98) L 01/22/18 15:48 Consult Discharge Plan - Plan Referrals: Guillermo Carey MD [Primary Care Provider] -
[2018-01-27] MEDS: Piperacillin/Tazobactam 3.375 GM in 0.9 % Sodium Chloride Mini Bag 100 ML IVPB SCH ×2 (00:30→09:08)
[2018-01-27] MEDS: OLANZapine 10 MG VIAL IM PRN ×2 (04:56→21:38)
[2018-01-27] MEDS: *HR* Enoxaparin 40 MG/0.4 ML SYRINGE SQ SCH (05:22)
[2018-01-27] MEDS ORDERED: Haloperidol Lactate 5 MG/ML VIAL ONE (07:44)
[2018-01-27 08:22] LABS: Basophils % 0.2 %; Eosinophils # 0.3 K/mcL (0.0-0.6); Eosinophils % 1.7 %; Immature Granulocytes % 0.4 % (0-4); Lymphocytes % 5.8 %; Mean Corpuscular HGB Conc 33.3 g/dL (31.6-35.5); Mean Corpuscular Hemoglobin 29.5 pg (28.0-33.3); Mean Corpuscular Volume 88.4 fL (83.0-100.0); Mean Platelet Volume 11.4 fL (9.4-12.4); Monocytes # 1.3 K/mcL (0.0-1.3); Monocytes % 7.6 %; Neutrophils # 14.2 K/mcL (1.6-8.9); Platelet Count 287 K/mcL (140-400); Red Blood Count 4.75 M/mcL (4.19-5.50); Red Cell Distribution Width 13.6 % (11.5-14.5); Segmented Neutrophils % 84.3 %
[2018-01-27 08:29] LABS: BUN/Creatinine Ratio 18 (6-26); Blood Urea Nitrogen 21 mg/dL (8-23); Calcium 8.9 mg/dL (8.6-10.3); Carbon Dioxide 22 mEq/L (23-29); Chloride 107 mEq/L (98-107); Glucose 118 mg/dL (70-105); Osmolality,Calculated 298 (280-300); Potassium 3.3 mEq/L (3.5-5.1); Sodium 142 mEq/L (136-145); eGFR For African Americans > 60 (> 60); eGFR For Non-African Americans > 60 (> 60)
[2018-01-27] MEDS: Insulin LISPRO 300 UNITS/3 ML VIAL SQ SCH ×4 (08:38→20:07)
[2018-01-27] MEDS: Insulin NPH/REG 70/30 100 UNIT/ML (x5UNIT) SQ SCH (09:08)
[2018-01-27] MEDS: Ampicillin/Sulbactam 1,500 MG in 0.9 % Sodium Chloride Mini Bag 100 ML IVPB SCH ×2 (12:17→17:13)
[2018-01-27] MEDS: Haloperidol Lactate 5 MG/ML VIAL IVP PRN ×2 (12:19→18:31)
--- NOTE | 2018-01-27 15:45 | Internal Med Progress Note ---
Date of Encounter: 01/27/18 Time of Encounter: 15:42 - Assessment and plan (1) Right upper lobe pneumonia Current Visit: Yes Status: Acute Assessment and plan: Mostly aspirational concern for bacterial inf too Switched abx to Unasyn Continue oxygen supplementation PRN Qualifiers: Pneumonia type: due to unspecified organism Qualified Code(s): J18.1 - Lobar pneumonia, unspecified organism (2) Altered mental state Current Visit: Yes Status: Acute Assessment and plan: CT of head negative His current delirium is multi factorial due to toxic encephaloapthy with sepsis and dementia He does have significant behavioral disturbances He does need In pt adult psych unit or close dementia unit transfer mean while cont soft behavioral restrains sitter 1 to 1 IV haldol PRN Also started him on seroquel Qualifiers: Altered mental status type: delirium Qualified Code(s): R41.0 - Disorientation, unspecified (3) Acute hyperglycemia Current Visit: Yes Status: Acute Assessment and plan: Improved. Continue diabetic diet. Continue accuchecks and SSI AC/HS (4) EDUARDO (acute kidney injury) Current Visit: Yes Status: Resolved Assessment and plan: Resolved. 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 Under care of urologist as outpatient. Plan for a scheduled circumcision next week. Urine culture grew out MRSA susceptible to vancomycin Continue IV vancomycin # 6/7 Qualifiers: Urinary tract infection type: site unspecified Hematuria presence: with hematuria Qualified Code(s): N39.0 - Urinary tract infection, site not specified; R31.9 - Hematuria, unspecified; R31.9 - Hematuria, unspecified (6) Hypokalemia Current Visit: Yes Status: Acute Assessment and plan: Replete potassium. Recheck BMP in AM. (7) DVT prophylaxis Current Visit: Yes Status: Acute Assessment and plan: Continue lovenox 30 mg SQ QD. - Time Spent With Patient Total time spent is greater than 50% in coordination of care (as documented) at patient's floor/unit and/or counseling patient: - Subjective Interval history: Mr. Alston is a 82 year old male with history of advanced dementia, resistant UTI has been under care of urologist and plan to get circumcision next week, diabetes mellitus, hypertension, hyperlipidemia brought in by EMS for complaint of altered mental status by patient's family. His chest x-ray showed right upper lobe infiltrate. Pt was admitted in the hospital and started him on empirical abx Zosyn and Vancomycin. Pt is alert, awake and O to self only. he getting agitates at times. Required 4 point restrains this morning. Now he has 2 point soft restrains. Talked to pt's and daughter at bed side - Constitutional Vitals: Temp Pulse Resp BP Pulse Ox 98.7 F 88 17 187/81 96 01/27/18 11:09 01/27/18 11:09 01/27/18 11:09 01/27/18 11:09 01/27/18 11:09 General appearance: Present: A&O X 0, pleasant, no acute distress - Head Head exam: Present: atraumatic, normal inspection - Neck Neck exam general surgery: Present: supple - Respiratory Respiratory exam: Present: decreased breath sounds. Absent: rales, respiratory distress, rhonchi, wheezes - Cardiovascular Cardiovascular exam: Present: RRR, +S1, +S2. Absent: tachycardia - GI/Abdominal GI/Abdominal exam: Present: normal bowel sounds, soft. Absent: rebound, rigid, tenderness - Extremities Exam Extremities exam: Absent: calf tenderness, pedal edema, tenderness - Back Exam Back exam: Absent: CVA tenderness (L), CVA tenderness (R) - Neurological Exam Neurological exam: Present: alert, altered - Psychiatric Psychiatric exam: Present: agitated Internal Medicine: Result - Labs CBC & Chem 7: 01/27/18 08:00 01/27/18 08:00 Labs: Short CBC 01/27/18 Range/Units 08:00 WBC 16.9 H (4.3-11.1) K/mcL Hgb 14.0 (12.9-16.9) g/dL Hct 42.0 (37.5-50.1) % Plt Count 287 (140-400) K/mcL Neutrophils # 14.2 H (1.6-8.9) K/mcL BMP 01/27/18 08:00 Sodium 142 Potassium 3.3 L Chloride 107 Carbon Dioxide 22 L BUN 21 Creatinine 1.15 Glucose 118 H Calcium 8.9 - ABG Interpretation ABG results: ABG ABG pH 7.40 pH Units (7.32-7.45) 01/22/18 15:48 ABG pCO2 40 mmHg (35-45) 01/22/18 15:48 ABG pO2 22 mmHg (85-104) L* 01/22/18 15:48 ABG O2 Saturation 36 % (95-98) L 01/22/18 15:48 - VTE Documentation of Mechanical Device: Intermittent pneumatic compression device Consult Discharge Plan - Plan Referrals: Guillermo Carey MD [Primary Care Provider] -
[2018-01-28] MEDS: Ampicillin/Sulbactam 1,500 MG in 0.9 % Sodium Chloride Mini Bag 100 ML IVPB SCH ×3 (01:04→11:50)
[2018-01-28] MEDS: *HR* Enoxaparin 40 MG/0.4 ML SYRINGE SQ SCH (04:38)
[2018-01-28 06:40] LABS: Basophils # 0.1 K/mcL (0.0-0.2); Basophils % 0.3 %; Eosinophils # 0.1 K/mcL (0.0-0.6); Eosinophils % 0.4 %; Hematocrit 45.8 % (37.5-50.1); Hemoglobin 15.1 g/dL (12.9-16.9); Immature Granulocytes % 0.6 % (0-4); Lymphocytes # 1.1 K/mcL (0.6-4.6); Lymphocytes % 7.3 %; Mean Corpuscular Hemoglobin 29.5 pg (28.0-33.3); Mean Corpuscular Volume 89.6 fL (83.0-100.0); Mean Platelet Volume 11.7 fL (9.4-12.4); Monocytes # 1.3 K/mcL (0.0-1.3); Monocytes % 8.1 %; Platelet Count 307 K/mcL (140-400); Red Blood Count 5.11 M/mcL (4.19-5.50); Red Cell Distribution Width 13.7 % (11.5-14.5); Segmented Neutrophils % 83.3 %
[2018-01-28 06:53] LABS: BUN/Creatinine Ratio 17 (6-26); Blood Urea Nitrogen 21 mg/dL (8-23); Calcium 9.7 mg/dL (8.6-10.3); Carbon Dioxide 20 mEq/L (23-29); Chloride 107 mEq/L (98-107); Glucose 302 mg/dL (70-105); Osmolality,Calculated 316 (280-300); Potassium 4.7 mEq/L (3.5-5.1); Sodium 146 mEq/L (136-145); eGFR For African Americans > 60 (> 60); eGFR For Non-African Americans 55 (> 60)
[2018-01-28] MEDS ORDERED: Aminoglycoside Consult 1 EACH MC ONE (08:19)
[2018-01-28] MEDS: Insulin LISPRO 300 UNITS/3 ML VIAL SQ SCH ×4 (08:49→20:29)
[2018-01-28] MEDS ORDERED: Haloperidol Lactate 5 MG/ML VIAL IVP PRN (12:12)
--- NOTE | 2018-01-28 14:37 | Internal Med Progress Note ---
Date of Encounter: 01/28/18 Time of Encounter: 11:45 - Assessment and plan (1) Right upper lobe pneumonia Current Visit: Yes Status: Acute Assessment and plan: Mostly aspirational concern for bacterial inf too Improving Switched to PO Augmentin # / Continue oxygen supplementation PRN Qualifiers: Pneumonia type: due to unspecified organism Qualified Code(s): J18.1 - Lobar pneumonia, unspecified organism (2) Altered mental state Current Visit: Yes Status: Acute Assessment and plan: CT of head negative His current delirium is multi factorial due to toxic encephaloapthy with sepsis and dementia He does have significant behavioral disturbances He does need In pt adult psych unit or close dementia unit transfer Consulted our psychiatrist for further eval mean while cont soft behavioral restrains sitter 1 to 1 IV Haldol PRN Cont seroquel QHS Qualifiers: Altered mental status type: delirium Qualified Code(s): R41.0 - Disorientation, unspecified (3) Acute hyperglycemia Current Visit: Yes Status: Acute Assessment and plan: Improved. Continue diabetic diet. Continue accuchecks and SSI AC/HS (4) EDUARDO (acute kidney injury) Current Visit: Yes Status: Resolved Assessment and plan: Resolved. 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 Under care of urologist as outpatient. Plan for a scheduled circumcision next week. Urine culture grew out MRSA susceptible to vancomycin Continue IV vancomycin # 7/ Qualifiers: Urinary tract infection type: site unspecified Hematuria presence: with hematuria Qualified Code(s): N39.0 - Urinary tract infection, site not specified; R31.9 - Hematuria, unspecified; R31.9 - Hematuria, unspecified (6) Hypokalemia Current Visit: Yes Status: Acute Assessment and plan: Replete potassium. Recheck BMP in AM. (7) Hypernatremia Current Visit: Yes Status: Acute Assessment and plan: Due to dehydration started him on 1/2NS (8) DVT prophylaxis Current Visit: Yes Status: Acute Assessment and plan: Continue lovenox 30 mg SQ QD. - Time Spent With Patient Total time spent is greater than 50% in coordination of care (as documented) at patient's floor/unit and/or counseling patient: - Subjective Interval history: Mr. Alston is a 82 year old male with history of advanced dementia, resistant UTI has been under care of urologist and plan to get circumcision next week, diabetes mellitus, hypertension, hyperlipidemia brought in by EMS for complaint of altered mental status by patient's family. His chest x-ray showed right upper lobe infiltrate. Pt was admitted in the hospital and started him on empirical abx Zosyn and Vancomycin. Pt is alert, awake and O to self only. Off the restrains. However he was very agitated and combative last night. - Constitutional Vitals: Temp Pulse Resp BP Pulse Ox 97.5 F L 59 16 128/65 93 01/28/18 11:14 01/28/18 11:14 01/28/18 11:14 01/28/18 11:14 01/28/18 11:14 General appearance: Present: A&O X 0, pleasant, no acute distress - Head Head exam: Present: normal inspection - Neck Neck exam general surgery: Present: supple - Respiratory Respiratory exam: Present: decreased breath sounds. Absent: rales, respiratory distress, rhonchi, wheezes - Cardiovascular Cardiovascular exam: Present: RRR, +S1, +S2. Absent: tachycardia - GI/Abdominal GI/Abdominal exam: Present: normal bowel sounds, soft. Absent: rebound, rigid, tenderness - Extremities Exam Extremities exam: Absent: calf tenderness, pedal edema, tenderness - Back Exam Back exam: Absent: CVA tenderness (L), CVA tenderness (R) - Neurological Exam Neurological exam: Present: alert, altered - Psychiatric Psychiatric exam: Present: agitated (at times) - Skin Skin exam: Absent: rash Internal Medicine: Result - Labs CBC & Chem 7: 01/28/18 06:19 01/28/18 06:19 Labs: Short CBC 01/28/18 Range/Units 06:19 WBC 15.6 H (4.3-11.1) K/mcL Hgb 15.1 (12.9-16.9) g/dL Hct 45.8 (37.5-50.1) % Plt Count 307 (140-400) K/mcL Neutrophils # 13.0 H (1.6-8.9) K/mcL BMP 01/28/18 06:19 Sodium 146 H Potassium 4.7 D Chloride 107 Carbon Dioxide 20 L BUN 21 Creatinine 1.26 Glucose 302 H Calcium 9.7 - ABG Interpretation ABG results: ABG ABG pH 7.40 pH Units (7.32-7.45) 01/22/18 15:48 ABG pCO2 40 mmHg (35-45) 01/22/18 15:48 ABG pO2 22 mmHg (85-104) L* 01/22/18 15:48 ABG O2 Saturation 36 % (95-98) L 01/22/18 15:48 - VTE Documentation of Mechanical Device: Intermittent pneumatic compression device Consult Discharge Plan - Plan Referrals: Guillermo Carey MD [Primary Care Provider] -
[2018-01-28] MEDS: Amoxicillin/Clavulanate 400 MG/5 ML UDC PO SCH (20:29)
[2018-01-29] MEDS: *HR* Enoxaparin 40 MG/0.4 ML SYRINGE SQ SCH (05:03)
[2018-01-29 05:27] LABS: Basophils % 0.3 %; Eosinophils # 0.2 K/mcL (0.0-0.6); Hematocrit 39.6 % (37.5-50.1); Immature Granulocytes % 0.5 % (0-4); Lymphocytes # 0.9 K/mcL (0.6-4.6); Lymphocytes % 7.6 %; Mean Corpuscular HGB Conc 33.1 g/dL (31.6-35.5); Mean Corpuscular Hemoglobin 28.9 pg (28.0-33.3); Mean Corpuscular Volume 87.4 fL (83.0-100.0); Mean Platelet Volume 11.8 fL (9.4-12.4); Monocytes # 1.1 K/mcL (0.0-1.3); Monocytes % 9.2 %; Neutrophils # 9.6 K/mcL (1.6-8.9); Platelet Count 251 K/mcL (140-400); Red Blood Count 4.53 M/mcL (4.19-5.50); Red Cell Distribution Width 13.9 % (11.5-14.5); Segmented Neutrophils % 80.4 %
[2018-01-29 05:32] LABS: Hemoglobin 13.1 g/dL (12.9-16.9)
[2018-01-29 05:52] LABS: BUN/Creatinine Ratio 20 (6-26); Blood Urea Nitrogen 24 mg/dL (8-23); Calcium 8.9 mg/dL (8.6-10.3); Carbon Dioxide 22 mEq/L (23-29); Chloride 108 mEq/L (98-107); Glucose 355 mg/dL (70-105); Osmolality,Calculated 312 (280-300); Potassium 3.3 mEq/L (3.5-5.1); Sodium 142 mEq/L (136-145); eGFR For African Americans > 60 (> 60); eGFR For Non-African Americans 57 (> 60)
[2018-01-29] MEDS ORDERED: OLANZapine 10 MG VIAL IM ONE (06:52)
[2018-01-29] MEDS ORDERED: Lisinopril 20 MG TABLET PO SCH (09:00)
[2018-01-29] MEDS: Insulin LISPRO 300 UNITS/3 ML VIAL SQ SCH ×5 (10:59→16:42)
[2018-01-29] MEDS: Amoxicillin/Clavulanate 400 MG/5 ML UDC PO SCH (10:59)
--- NOTE | 2018-01-29 12:26 | Consult Note ---
Date of Encounter: 01/29/18 Time of Encounter: 11:55 Assessment & Recommendation (1) Dementia with behavioral disturbance Current visit: Yes Status: Acute Assessment & Recommendation: patient at present has behavioral disturbances requires 1:1 and prn medication, once medically stable will require inpatient geropsych for stabilization and safety. Qualifiers: Dementia type: unspecified type Qualified Code(s): F03.91 - Unspecified dementia with behavioral disturbance History of Present Illness Patient: new to practice Requesting Physician: Chio Cochran MD Reason for consult: acute psychosis History of present illness: Mr. Alston is a 82 year old male was consulted today for h/o dementia and psychosis , Dr Tay called me about this patient and his behavioral outburst. Patient was consulted today at his bed side , he was alert and answer my question with rambling speech and at times loud, he had disorganized thought process , illogical and has been loud, agitated and is medicated for his agitation , as per his sitter he will get combative and has been given soft restraint , when i saw him he was not restrain , but will get loud and has been irritable.patient is not oriented able to give his name but not able to his or any other information. he is confused , rambling speech and illogical thought process , he has made statement mice trying to eat me, He has history of advanced dementia, resistant UTI , diabetes mellitus, hypertension, hyperlipidemia brought in by EMS for complaint of altered mental status by patient's family. at present patient has dementia with behavioral outburst and as per staff behaviors that including agitation with patient grabbing, hitting, kicking and cursing staff , he has been given prn haldol and has had a sitter for safety. A/P Dementia with behavioral disturbances Patient once medically cleared will need geropsych inpatient admission to monitor his behavioral disturbances related to Dementia and probable psychosis for patients safety and others. CC: Chio Cochran MD Past Med Surg Social Fam HX - Past Medical History Medical history: diabetes, other - Past Psychiatric History Psychiatric history: Reports: other Family psychiatric history: Unknown Family History of Suicide: Unknown - Social History Smoking Status: Current every day smoker Smokeless Tobacco Status: No Alcohol use: none Drug use: none Medications & Allergies Donepezil [Aricept] 10 mg PO HS 01/22/18 [History] Insulin Lispro Protamin/Lispro [Humalog Mix 75-25 Vial] 18 units IJ QPM [History] Insulin Lispro Protamin/Lispro [Humalog Mix 75-25 Vial] 28 unit IJ QAM 01/22/18 [History] Lisinopril/Hydrochlorothiazide [Zestoretic 10-12.5 mg Tablet] 1 tab PO DAILY [History] Pantoprazole Sodium 40 mg PO DAILY 01/22/18 [History] Pravastatin Sodium [Pravachol] 40 mg PO HS 01/22/18 [History] 3 Allergy/AdvReac Type Severity Reaction Status Date / Time No Known Allergies Allergy Verified 09/26/17 16:53 Review of Systems Psychiatric: Reports: visual hallucinations, confusion, irritability Psychiatry Exam - Constitutional Vitals: Temp Pulse Resp BP Pulse Ox 97.5 F L 97 17 102/78 97 01/29/18 11:15 01/29/18 11:15 01/29/18 11:15 01/29/18 11:15 01/29/18 11:15 General appearance: thin - Psychiatric Level of alertness: Alert Behavior: hostile Eye Contact: No Eye Contact Mood Description: Irritable Speech Volume: Loud Speech pattern: rambling Thought Process: Disorganized Perceptual Disturbances: Yes Visual hallucinations Attention Span Ability: Unable to Sustain Attention Memory Description: Immediate Impaired, Recent Impaired, Remote Impaired Patient Reliability: Not Reliable Historian Judgment: Poor Insight: None Results - Labs Labs: Laboratory Last Values WBC 11.9 K/mcL (4.3-11.1) H 01/29/18 05:09 RBC 4.53 M/mcL (4.19-5.50) 01/29/18 05:09 Hgb 13.1 g/dL (12.9-16.9) D 01/29/18 05:09 Hct 39.6 % (37.5-50.1) 01/29/18 05:09 MCV 87.4 fL (83.0-100.0) 01/29/18 05:09 MCH 28.9 pg (28.0-33.3) 01/29/18 05:09 MCHC 33.1 g/dL (31.6-35.5) 01/29/18 05:09 RDW 13.9 % (11.5-14.5) 01/29/18 05:09 Plt Count 251 K/mcL (140-400) 01/29/18 05:09 MPV 11.8 fL (9.4-12.4) 01/29/18 05:09 Immature Gran % 0.5 % (0-4) 01/29/18 05:09 Seg Neutrophils % 80.4 % 01/29/18 05:09 Lymphocytes % 7.6 % 01/29/18 05:09 Monocytes % 9.2 % 01/29/18 05:09 Eosinophils % 2.0 % 01/29/18 05:09 Basophils % 0.3 % 01/29/18 05:09 Neutrophils # 9.6 K/mcL (1.6-8.9) H 01/29/18 05:09 Lymphocytes # 0.9 K/mcL (0.6-4.6) 01/29/18 05:09 Monocytes # 1.1 K/mcL (0.0-1.3) 01/29/18 05:09 Eosinophils # 0.2 K/mcL (0.0-0.6) 01/29/18 05:09 Basophils # 0.0 K/mcL (0.0-0.2) 01/29/18 05:09 Nucleated RBCs/100 WBC 0.1 /100 WBC (0) H 01/25/18 05:26 ABG pH 7.40 pH Units (7.32-7.45) 01/22/18 15:48 ABG pCO2 40 mmHg (35-45) 01/22/18 15:48 ABG pO2 22 mmHg (85-104) L* 01/22/18 15:48 ABG HCO3 25 mEq/L (21-27) 01/22/18 15:48 ABG Total CO2 26 mEq/L (20-26) 01/22/18 15:48 ABG O2 Saturation 36 % (95-98) L 01/22/18 15:48 ABG Base Excess 0 mEq/L (-2 to 3) 01/22/18 15:48 VBG pH 7.35 pH Units (7.32-7.42) 01/22/18 15:43 VBG pCO2 44 mmHg (41-51) 01/22/18 15:43 VBG pO2 84 mmHg (25-50) H 01/22/18 15:43 VBG HCO3 24 mEq/L (21-27) 01/22/18 15:43 Inspired O2 21.0 (1-15=lpm [id number]=%) 01/22/18 15:48 Sodium 142 mEq/L (136-145) 01/29/18 05:09 Potassium 3.3 mEq/L (3.5-5.1) L D 01/29/18 05:09 Chloride 108 mEq/L (98-107) H 01/29/18 05:09 Carbon Dioxide 22 mEq/L (23-29) L 01/29/18 05:09 BUN 24 mg/dL (8-23) H 01/29/18 05:09 Creatinine 1.22 mg/dL (0.70-1.30) 01/29/18 05:09 Est GFR ( Amer) > 60 (> 60) 01/29/18 05:09 Est GFR (Non-Af Amer) 57 (> 60) L 01/29/18 05:09 BUN/Creatinine Ratio 20 (6-26) 01/29/18 05:09 Glucose 355 mg/dL (70-105) H 01/29/18 05:09 POC Glucose 261 mg/dL (70-99) H 01/28/18 19:07 Est Mean Plasma Glucose 189 mg/dl 01/22/18 19:36 Hemoglobin A1c 8.2 % (-5.6) H 01/22/18 19:36 Calculated Osmolality 312 (280-300) H 01/29/18 05:09 Lactic Acid 1.8 mmol/L (0.5-2.2) 01/22/18 13:22 Calcium 8.9 mg/dL (8.6-10.3) 01/29/18 05:09 Phosphorus 2.7 mg/dL (2.7-4.5) 01/22/18 13:22 Magnesium 2.0 mg/dL (1.6-2.6) 01/22/18 13:22 Total Bilirubin 0.5 mg/dL (0.3-1.0) 01/22/18 13:22 AST 44 Units/L (13-39) H 01/22/18 13:22 ALT 30 Units/L (7-52) 01/22/18 13:22 Alkaline Phosphatase 73 Units/L (34-104) 01/22/18 13:22 Troponin I < 0.03 ng/mL (< 0.04) 01/22/18 13:22 Serum Total Protein 7.3 g/dL (6.4-8.9) 01/22/18 13:22 Albumin 4.1 g/dL (3.5-5.7) 01/22/18 13:22 Globulin 3.2 g/dL (2.4-3.5) 01/22/18 13:22 Albumin/Globulin Ratio 1.3 (1.1-2.2) 01/22/18 13:22 Beta-Hydroxybutyric Acd > 2.00 mmol/L (0.02-0.27) H 01/22/18 13:22 Urine Color Yellow (Yellow) 01/22/18 14:36 Urine Clarity Cloudy (Clear) A 01/22/18 14:36 Urine pH 6.0 pH Units (5.0-8.0) 01/22/18 14:36 Ur Specific [place] 1.030 (1.010-1.025) H 01/22/18 14:36 Urine Protein 30 mg/dL (Neg-Trace) H 01/22/18 14:36 Urine Glucose (UA) >=1000 mg/dL (Normal) H 01/22/18 14:36 Urine Ketones 15 mg/dL (Negative) H 01/22/18 14:36 Urine Blood Large (Negative) H 01/22/18 14:36 Urine Nitrite Positive (Negative) A 01/22/18 14:36 Urine Bilirubin Negative (Negative) 01/22/18 14:36 Urine Urobilinogen Normal mg/dL (Normal) 01/22/18 14:36 Ur Leukocyte Esterase Moderate (Negative) H 01/22/18 14:36 Urine Microscopic RBC 3-5 per hpf (0-3) H 01/22/18 14:36 Urine Microscopic WBC 50-100 per hpf (0-3) H 01/22/18 14:36 Urine Bacteria Many per hpf (None-Few) H 01/22/18 14:36 Vancomycin Trough 9 mcg/mL (5-10) 01/26/18 06:38 Consult Discharge Plan - Plan Referrals: Guillermo Carey MD [Primary Care Provider] -
[2018-01-29 15:54] VITALS: BP 163/64
[2018-01-29] MEDS ORDERED: 0.45 % Sodium Chloride w/KCl 20 MEQ/1,000 ML MLS IVC SCH (16:00)
--- NOTE | 2018-01-29 16:04 | Internal Med Progress Note ---
Date of Encounter: 01/29/18 Time of Encounter: 16:01 - Assessment and plan (1) Right upper lobe pneumonia Current Visit: Yes Status: Acute Assessment and plan: Mostly aspirational concern for bacterial inf too Improving Cont PO Augmentin # 7/ Continue oxygen supplementation PRN Qualifiers: Pneumonia type: due to unspecified organism Qualified Code(s): J18.1 - Lobar pneumonia, unspecified organism (2) Altered mental state Current Visit: Yes Status: Acute Assessment and plan: CT of head negative His current delirium is multi factorial due to toxic encephaloapthy with sepsis and dementia He does have significant behavioral disturbances He does need In pt adult psych unit or close dementia unit transfer Psychiatrist evaluated the pt and recommend in patient psych unit transfer SW / CM working on it cont Haldol PRN also started him on Zyprex 5mg PO QHS d/c Seroquel Qualifiers: Altered mental status type: delirium Qualified Code(s): R41.0 - Disorientation, unspecified (3) Acute hyperglycemia Current Visit: Yes Status: Acute Assessment and plan: fluctuating resumed Levemir 20 U BID cont ISS (4) EDUARDO (acute kidney injury) Current Visit: Yes Status: Resolved Assessment and plan: Resolved. 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 Under care of urologist as outpatient. Plan for a scheduled circumcision next week. Urine culture grew out MRSA susceptible to vancomycin Continue IV vancomycin # 7/ Qualifiers: Urinary tract infection type: site unspecified Hematuria presence: with hematuria Qualified Code(s): N39.0 - Urinary tract infection, site not specified; R31.9 - Hematuria, unspecified; R31.9 - Hematuria, unspecified (6) Hypokalemia Current Visit: Yes Status: Acute Assessment and plan: Replete potassium. Recheck BMP in AM. (7) Hypernatremia Current Visit: Yes Status: Acute Assessment and plan: Due to dehydration Improving Cont him on 1/2NS (8) DVT prophylaxis Current Visit: Yes Status: Acute Assessment and plan: Continue lovenox 30 mg SQ QD. - Time Spent With Patient Total time spent is greater than 50% in coordination of care (as documented) at patient's floor/unit and/or counseling patient: - Subjective Interval history: Mr. Alston is a 82 year old male with history of advanced dementia, resistant UTI has been under care of urologist and plan to get circumcision next week, diabetes mellitus, hypertension, hyperlipidemia brought in by EMS for complaint of altered mental status by patient's family. His chest x-ray showed right upper lobe infiltrate. Pt was admitted in the hospital and started him on empirical abx Zosyn and Vancomycin. Pt is alert, awake and O to self only. Off the restrains. Pt is still getting agitated at times. - Constitutional Vitals: Temp Pulse Resp BP Pulse Ox 97.6 F 85 18 163/64 96 01/29/18 15:52 01/29/18 15:52 01/29/18 15:52 01/29/18 15:52 01/29/18 15:52 General appearance: Present: A&O X 0, pleasant, no acute distress - Head Head exam: Present: atraumatic, normal inspection - Neck Neck exam general surgery: Present: supple - Respiratory Respiratory exam: Present: decreased breath sounds. Absent: rales, respiratory distress, rhonchi, wheezes - Cardiovascular Cardiovascular exam: Present: RRR, +S1, +S2. Absent: tachycardia - GI/Abdominal GI/Abdominal exam: Present: normal bowel sounds, soft. Absent: rebound, rigid, tenderness - Extremities Exam Extremities exam: Absent: calf tenderness, pedal edema, tenderness - Back Exam Back exam: Absent: CVA tenderness (L), CVA tenderness (R) - Neurological Exam Neurological exam: Present: altered - Psychiatric Psychiatric exam: Present: agitated Internal Medicine: Result - Labs CBC & Chem 7: 01/29/18 05:09 01/29/18 05:09 Labs: Short CBC 01/29/18 Range/Units 05:09 WBC 11.9 H (4.3-11.1) K/mcL Hgb 13.1 D (12.9-16.9) g/dL Hct 39.6 (37.5-50.1) % Plt Count 251 (140-400) K/mcL Neutrophils # 9.6 H (1.6-8.9) K/mcL BMP 01/29/18 05:09 Sodium 142 Potassium 3.3 L D Chloride 108 H Carbon Dioxide 22 L BUN 24 H Creatinine 1.22 Glucose 355 H Calcium 8.9 - ABG Interpretation ABG results: ABG ABG pH 7.40 pH Units (7.32-7.45) 01/22/18 15:48 ABG pCO2 40 mmHg (35-45) 01/22/18 15:48 ABG pO2 22 mmHg (85-104) L* 01/22/18 15:48 ABG O2 Saturation 36 % (95-98) L 01/22/18 15:48 - VTE Documentation of Mechanical Device: Intermittent pneumatic compression device Consult Discharge Plan - Plan Referrals: Guillermo Carey MD [Primary Care Provider] -
--- NOTE | 2018-01-29 16:32 | Discharge Summary ---
- NOTES TO OUTPATIENT PROVIDER Notes to Outpatient Provider: f/u with PCP in one week. Recommend to give pureed diet with honey thick liquids Orders not resulted at time of discharge: Pending orders 01/30/18 04:00 BMP [Basic Metabolic Panel] AM 0400 Complete Blood Count [HEME] AM 0400 Date of Encounter: 01/29/18 Time of Encounter: 16:26 - Discharge Diagnosis (1) Right upper lobe pneumonia Priority: Primary Status: Acute Qualifiers: Pneumonia type: due to unspecified organism Qualified Code(s): J18.1 - Lobar pneumonia, unspecified organism (2) Altered mental state Priority: Primary Status: Acute Qualifiers: Altered mental status type: delirium Qualified Code(s): R41.0 - Disorientation, unspecified (3) Acute hyperglycemia Priority: Primary Status: Acute (4) EDUARDO (acute kidney injury) Priority: Secondary Status: Resolved (5) UTI (urinary tract infection) Priority: Secondary Status: Acute Qualifiers: Urinary tract infection type: site unspecified Hematuria presence: with hematuria Qualified Code(s): N39.0 - Urinary tract infection, site not specified; R31.9 - Hematuria, unspecified; R31.9 - Hematuria, unspecified (6) Hypokalemia Priority: Secondary Status: Acute (7) Hypernatremia Priority: Secondary Status: Acute (8) DVT prophylaxis Priority: Secondary Status: Acute Hospital course: Mr. Alston is a 82 year old male with history of advanced dementia, resistant UTI has been under care of urologist and plan to get circumcision next week, diabetes mellitus, hypertension, hyperlipidemia brought in by EMS for complaint of altered mental status by patient's family. His chest x-ray showed right upper lobe infiltrate. Pt was admitted in the hospital and started him on empirical abx Zosyn and Vancomycin. His urine cx grew MRSA for which he finishded 7 days Vancomycin here. For his pneumonia pt symptoms started improving with IV abx and duonebs. He is off the O2 and breathing comfortably on RA. He remained afebrile and his WBC trended down to normal so switched to PO Augmentin. Regarding his acute delirium which is multi factorial due to toxic encephaloapthy with sepsis and dementia. He CT of head negative for ICH. He does have significant behavioral disturbances. Psychiatrist evaluated the pt and recommend in patient psych unit transfer. Mean while we started him on Zyprexa 5mg po QHS here and used Haldol PRN. [facility], so will d/c him in stable condition today. - Time Spent with Patient Total time spent providing and/or coordinating discharge services: Greater than 30 minutes - Discharge Medications Prescriptions: Amoxicillin/Clavulanate [AUGMENTIN Susp] 800 mg PO 799,1999 3 Days udc Home Medications: Donepezil [Aricept] 10 mg PO HS 01/22/18 [History] Insulin Lispro Protamin/Lispro [Humalog Mix 75-25 Vial] 18 units IJ QPM [History] Insulin Lispro Protamin/Lispro [Humalog Mix 75-25 Vial] 28 unit IJ QAM 01/22/18 [History] Pantoprazole Sodium 40 mg PO DAILY 01/22/18 [History] Pravastatin Sodium [Pravachol] 40 mg PO HS 01/22/18 [History] Amoxicillin/Clavulanate [AUGMENTIN Susp] 800 mg PO 799,1999 3 Days udc [Rx] Lisinopril [Zestril] 20 mg PO DAILY tablet 01/29/18 [Rx] OLANZapine [Zyprexa Zydis] 5 mg PO HS #0 tab.rapdis 01/29/18 [Rx] Allergies/Adverse Reactions: 3 Allergy/AdvReac Type Severity Reaction Status Date / Time No Known Allergies Allergy Verified 09/26/17 16:53 Date of admission: 01/22/18 19:05 Primary care physician: Guillerom Carey MD Consults: 01/24/18 11:35 Consult to [facility] [CONS] Routine Reason for SW Consult: Dementia Placement 01/28/18 14:37 Consult to Psychiatry [CONS] Routine Consulting Provider: Psych[facility] [place] Reason for Consult: Acute psychosis Time Notified: 14:38 Call Completed: Yes - Constitutional Vitals: Temp Pulse Resp BP Pulse Ox 97.6 F 85 18 163/64 96 01/29/18 15:52 01/29/18 15:52 01/29/18 15:52 01/29/18 15:52 01/29/18 15:52 General appearance: Present: A&O X 0, pleasant, no acute distress - Head Head exam: Present: atraumatic, normal inspection - Neck Neck exam general surgery: Present: supple - Respiratory Respiratory exam: Present: decreased breath sounds. Absent: rales, respiratory distress, rhonchi, wheezes - Cardiovascular Cardiovascular exam: Present: RRR, +S1, +S2. Absent: tachycardia - GI/Abdominal GI/Abdominal exam: Present: normal bowel sounds, soft. Absent: rebound, rigid, tenderness - Extremities Exam Extremities exam: Absent: calf tenderness, pedal edema, tenderness - Back Exam Back exam: Absent: CVA tenderness (L), CVA tenderness (R) - Neurological Exam Neurological exam: Present: alert, oriented X3 - Psychiatric Psychiatric exam: Present: normal affect, normal mood - Patient Status Disposition: Transfer Other Condition: Fair Overall status at discharge: patient is not back to baseline - Discharge Instructions Follow Up With: Guillermo Carey MD [Primary Care Provider] - - Diet and Activity Activity: increase activity as tolerated Diet: other (Pureed diet with honey thick liquids) - VTE Documentation of Mechanical Device: Intermittent pneumatic compression device
--- NOTE | 2018-01-29 16:50 | Physician Discharge Referral ---
ExtendedCare Referral Info Transfer To: ECF / In patient psych unit Provider in Charge after Transfer: PCP Institutional Level of Care: Skilled - Diagnosis (1) Right upper lobe pneumonia Status: Acute (2) Altered mental state Status: Acute (3) Acute hyperglycemia Status: Acute (4) EDUARDO (acute kidney injury) Status: Resolved (5) UTI (urinary tract infection) Status: Acute (6) Hypokalemia Status: Acute (7) Hypernatremia Status: Acute (8) DVT prophylaxis Status: Acute - Transfer Medications Prescriptions: Amoxicillin/Clavulanate [AUGMENTIN Susp] 800 mg PO 799,1999 3 Days udc Home Medications: Donepezil [Aricept] 10 mg PO HS 01/22/18 [History] Insulin Lispro Protamin/Lispro [Humalog Mix 75-25 Vial] 18 units IJ QPM [History] Insulin Lispro Protamin/Lispro [Humalog Mix 75-25 Vial] 28 unit IJ QAM 01/22/18 [History] Pantoprazole Sodium 40 mg PO DAILY 01/22/18 [History] Pravastatin Sodium [Pravachol] 40 mg PO HS 01/22/18 [History] Amoxicillin/Clavulanate [AUGMENTIN Susp] 800 mg PO 799,1999 3 Days udc [Rx] Lisinopril [Zestril] 20 mg PO DAILY tablet 01/29/18 [Rx] OLANZapine [Zyprexa Zydis] 5 mg PO HS #0 tab.rapdis 01/29/18 [Rx] Allergies/Adverse Reactions: 3 Allergy/AdvReac Type Severity Reaction Status Date / Time No Known Allergies Allergy Verified 09/26/17 16:53 - Respiratory Orders Smoking Cessation: Smoking cessation has been advised. For more information, call the [place] Tobacco Quit Line at 5-670-FUVNNOW. CERTIFICATION: I certify that the transfer of the above named patient to an Extended Care Facility is necessary for the continuing treatment of the diagnosis listed. The above information is true and accurate reflection of patient's current condition. Confidential - Redisclosure prohibited without a patient's written consent.
[2018-01-29] MEDS ORDERED: Insulin DETEMIR 100 UNIT/ML X5UNITS SQ SCH (21:00)
[2018-01-29] MEDS ORDERED: OLANZapine 5 MG TAB.RAPDIS PO SCH (21:00)
== END 2018-01-29 19:04 | disposition other institution (70) | DRG 871 ==
LOC: EMEROO 11:56 → 2ANU 11:56 → SUATTDRO 19:05 → 2ANU 01-23 23:31
PROVIDERS: ADMIT Student in an Organized Health Care Education/Training Program; ATTEND Family Medicine